=== PATIENT | male | born 1990 | race Caucasian/White ===

== ENCOUNTER → 2018-04-11 | Outpatient (CLI) | payer OTHER, BC ==
--- NOTE | 2018-04-11 12:38 | CT ---
EXAMINATION TYPE: CT cervical spine wo con DATE OF EXAM: 04/11/2018 COMPARISON: October 22, 2009 HISTORY: Neck pain since surgery 2009. CT DLP: 342.[address] of the cervical spine was performed with bone and soft tissue window settings submitted . Coronal and sagittal reconstruction is obtained. Interval ACDF changes extending from C3 through C5 with anterior fixation plate in place as well as i ntervertebral body stabilizer. There is decompressive laminectomy change noted posteriorly. Pedicular screws are in place. Streak artifact limits evaluation of these levels. C2-3: Within normal limits C5-6: Mild degenerative disc space narrowing. Ventral spondylosis. Mild posterior disc bulge. No reanna iation protrusion or central stenosis. Mild left foraminal encroachment. C6-7: Mild degenerative disc space narrowing. Mild posterior disc bulge. No evidence for herniation o r central stenosis. C7-T1: Within normal limits. There is reversal of the normal cervical lordosis can be seen in patients with muscle spasticity. IMPRESSION: 1. Postoperative changes of ACDF and cervical laminectomy at C3-C5 with reversal of the normal cervic al lordosis. 2. Degenerative disc space narrowing mild in degree with disc bulging as outlined above.
== END | disposition home or self-care (01) ==
LOC: RADCTMAIN 12:03
PROVIDERS: ATTEND Specialist
DX: M48.02 Spinal stenosis, cervical region (principal); M50.122 Cervical disc disorder at C5-C6 level with radiculopathy; Z98.1 Arthrodesis status
CPT/HCPCS: 72125

== ENCOUNTER 2018-04-16 16:17 | Inpatient (IN) | payer BC, MEDICAID, OTHER ==
--- NOTE | 2018-04-16 18:05 | ED ---
General Adult HPI - General Chief complaint: Psychiatric Symptoms Stated complaint: Mental health Time Seen by Provider: 04/16/18 16:33 Source: patient, RN notes reviewed, old records reviewed Mode of arrival: ambulatory Limitations: no limitations - History of Present Illness Initial comments: This is a 27-year-old male to the ER for evaluation presents today for evaluation regards to psychiatric illness. Patient having delusional delirium symptoms. Patient's been attempted to see psychiatrist but has not ever followed through, patient believes family is spying on him. Patient does have paranoid delusions. Patient is petition by his mom, brought in by the Police Department, no drugs or alcohol use - Related Data Home Medications Medication Instructions Recorded Confirmed No Known Home Medications 04/16/18 04/16/18 Allergies Allergy/AdvReac Type Severity Reaction Status Date / Time amoxicillin Allergy Unknown Verified 04/16/18 16:47 Childhood Review of Systems ROS Statement: Those systems with pertinent positive or pertinent negative responses have been documented in the HPI. ROS Other: All systems not noted in ROS Statement are negative. Past Medical History Past Medical History: No Reported History Additional Past Medical History / Comment(s): CHI, neck pains History of Any Multi-Drug Resistant Organisms: None Reported Additional Past Surgical History / Comment(s): neck surgery, craniotomy Past Psychological History: ADD/ADHD, Anxiety Smoking Status: Current every day smoker Past Alcohol Use History: Occasional Past Drug Use History: Marijuana General Exam Limitations: no limitations General appearance: alert, in no apparent distress Head exam: Present: atraumatic, normocephalic, normal inspection Eye exam: Present: normal appearance, PERRL, EOMI. Absent: scleral icterus, conjunctival injection, periorbital swelling ENT exam: Present: normal exam, mucous membranes moist Neck exam: Present: normal inspection. Absent: tenderness, meningismus, lymphadenopathy Respiratory exam: Present: normal lung sounds bilaterally. Absent: respiratory distress, wheezes, rales, rhonchi, stridor Cardiovascular Exam: Present: regular rate, normal rhythm, normal heart sounds. Absent: systolic murmur, diastolic murmur, rubs, gallop, clicks GI/Abdominal exam: Present: soft, normal bowel sounds. Absent: distended, tenderness, guarding, rebound, rigid Extremities exam: Present: normal inspection, full ROM, normal capillary refill. Absent: tenderness, pedal edema, joint swelling, calf tenderness Back exam: Present: normal inspection Neurological exam: Present: alert, oriented X3, CN II-XII intact Psychiatric exam: Present: normal affect, normal mood Skin exam: Present: warm, dry, intact, normal color. Absent: rash Course Vital Signs 04/16/18 16:36 Temperature 98.1 F Pulse Rate 91 Respiratory 18 Rate Blood Pressure 120/73 O2 Sat by Pulse 98 Oximetry - Reevaluation(s) Reevaluation #1: 04/16/18 18:05 Patient is medically clear for psychiatric evaluation Medical Decision Making - Medical Decision Making 27 male the ER for evaluation, patient presents for psychiatric illness. Patient's conditions inserted, patient was admitted admission for psychiatric evaluation Disposition Clinical Impression: Acute psychosis Disposition: TRANSFER TO PSYCH HOSP/UNIT Condition: Undetermined Is patient prescribed a controlled substance at d/c from ED?: No Referrals: Bennett Cast MD [Primary Care Provider] - 1-2 days
[2018-04-16 19:25] LABS: Amphetamine Screen,Urine Not Detected (NotDetected); Barbiturate Screen,Urine Not Detected (NotDetected); Benzodiazepines Screen,Urine Not Detected (NotDetected); Cocaine Screen,Urine Not Detected (NotDetected); Methadone Screen, Urine Not Detected (NotDetected); Opiate Screen,Urine Not Detected (NotDetected); Oxycodone Screen, Urine Not Detected (NotDetected); Phencyclidine Screen,Urine Not Detected (NotDetected); Tricyclic Antidepressant,Urine Not Detected (NotDetected); Urn Cannabinoid Scrn Detected (NotDetected)
[2018-04-16] MEDS ORDERED: MAG HYDROX/AL HYDROX/SIMETH 30 ML CUP PO PRN (19:49)
[2018-04-16] MEDS ORDERED: ZIPRASIDONE 20 MG VIAL IM PRN (19:49)
[2018-04-16] MEDS ORDERED: MAGNESIUM HYDROXIDE 2,400 MG/10 ML CUP PO PRN (19:49)
[2018-04-16] MEDS ORDERED: LORazepam 1 MG TAB PO PRN (19:49)
[2018-04-16] MEDS ORDERED: LORazepam 2 MG/ML INJ IM STA (19:53)
[2018-04-16] MEDS ORDERED: LORazepam 2 MG/ML INJ IM PRN (19:57)
[2018-04-16 20:02] LABS: Appearance,Urine Clear (Clear); Bilirubin,Urine Negative (Negative); Blood,Urine Negative (Negative); Color,Urine Yellow; Glucose,Urine (UA) Negative (Negative); Ketones,Urine Negative (Negative); Leukocyte Esterase,Urine Negative (Negative); Nitrite,Urine Negative (Negative); PH, Urine 6.5 (5.0-8.0); Protein,Urine Negative (Negative); Specific Gravity,Urine 1.015 (1.001-1.035); Urobilinogen,Urine <2.0 mg/dL (<2.0)
[2018-04-16] MEDS ORDERED: WATER FOR INJECTION, STERILE 10 ML IV ONE (20:18)
[2018-04-16] MEDS ORDERED: ZIPRASIDONE 20 MG VIAL IM ONE (20:18)
--- NOTE | 2018-04-16 21:00 | P.MHFACE ---
Face to Face Eval of Restraint - Evaluation Patient's Immediate Situation: Endangers self safety, Violent behavior Patient's Reaction to the Intervention: Appropriate, Calm, Relaxed, Cooperative Patient's Medical & Behavioral Condition: Awake, Alert, Follows directions Need to Continue or Terminate Restraint or Seclusion: Terminate
[2018-04-17] MEDS: NICOTINE 21MG/24HR PATCH TRANSDERM SCH ×2 (00:16→08:15)
[2018-04-17] MEDS: ACETAMINOPHEN TAB 325 MG TAB PO PRN ×2 (08:16→20:15)
[2018-04-17 09:55] LABS: ALT 213 U/L (21-72); AST 101 U/L (17-59); Alkaline Phosphatase 58 U/L (38-126); Anion Gap 8 mmol/L; Blood Urea Nitrogen 8 mg/dL (9-20); Calcium 9.4 mg/dL (8.4-10.2); Carbon Dioxide 30 mmol/L (22-30); Chloride 107 mmol/L (98-107); Cholesterol 157 mg/dL (<200); Glucose 60 mg/dL (74-99); HDL Cholesterol 54 mg/dL (40-60); LDL Cholesterol,Calculated 85 mg/dL (0-99); Potassium 4.2 mmol/L (3.5-5.1); Sodium 145 mmol/L (137-145); Total Bilirubin 0.6 mg/dL (0.2-1.3); Total Protein 6.7 g/dL (6.3-8.2); Triglycerides 89 mg/dL (<150)
--- NOTE | 2018-04-17 10:16 | P.HP ---
Psychiatric H&P - . H&P Date: 04/17/18 History & Physical: Allergies Allergy/AdvReac Type Severity Reaction Status Date / Time amoxicillin Allergy Unknown Verified 04/16/18 16:47 Childhood Vital Signs Temp 98.1 F 04/16/18 16:36 Pulse 82 04/16/18 22:10 Resp 18 04/16/18 16:36 BP 120/73 04/16/18 16:36 Pulse Ox 98 04/16/18 16:36 Intake & Output 04/16/18 04/17/18 04/17/18 18:59 06:59 18:59 Weight 58.967 kg 57.561 kg Laboratory Last Values Urine Color Yellow 04/16/18 18:19 Urine Appearance Clear (Clear) 04/16/18 18:19 Urine pH 6.5 (5.0-8.0) 04/16/18 18:19 Ur Specific Kinta 1.015 (1.001-1.035) 04/16/18 18:19 Urine Protein Negative (Negative) 04/16/18 18:19 Urine Glucose (UA) Negative (Negative) 04/16/18 18:19 Urine Ketones Negative (Negative) 04/16/18 18:19 Urine Blood Negative (Negative) 04/16/18 18:19 Urine Nitrite Negative (Negative) 04/16/18 18:19 Urine Bilirubin Negative (Negative) 04/16/18 18:19 Urine Urobilinogen <2.0 mg/dL (<2.0) 04/16/18 18:19 Ur Leukocyte Esterase Negative (Negative) 04/16/18 18:19 Urine Opiates Screen Not Detected (NotDetected) 04/16/18 18:19 Ur Oxycodone Screen Not Detected (NotDetected) 04/16/18 18:19 Urine Methadone Screen Not Detected (NotDetected) 04/16/18 18:19 Ur Propoxyphene Screen Not Detected (NotDetected) 04/16/18 18:19 Ur Barbiturates Screen Not Detected (NotDetected) 04/16/18 18:19 U Tricyclic Antidepress Not Detected (NotDetected) 04/16/18 18:19 Ur Phencyclidine Scrn Not Detected (NotDetected) 04/16/18 18:19 Ur Amphetamines Screen Not Detected (NotDetected) 04/16/18 18:19 U Methamphetamines Scrn Not Detected (NotDetected) 04/16/18 18:19 U Benzodiazepines Scrn Not Detected (NotDetected) 04/16/18 18:19 Urine Cocaine Screen Not Detected (NotDetected) 04/16/18 18:19 U Marijuana (THC) Screen Detected (NotDetected) H 04/16/18 18:19 27 male the ER for evaluation, patient presents for psychiatric illness. Patient's conditions inserted, patient was admitted admission for psychiatric evaluation 04/17/18 09:48 Assessment and Plan (1) Bipolar I disorder with rufino Current Visit: Yes Status: Acute Priority: High Code(s): F31.10 - BIPOLAR DISORD, CRNT EPISODE MANIC W/O PSYCH FEATURES, UNSP SNOMED Code(s): 32559660 (2) Acute psychosis Current Visit: Yes Status: Acute Priority: High Code(s): F23 - BRIEF PSYCHOTIC DISORDER SNOMED Code(s): 10240614 Plan: Chief Complaint: [27 male the ER for evaluation, patient presents for psychiatric illness. Patient's conditions inserted, patient was admitted admission for psychiatric evaluation] History of Present Illness: [This is a 27-year-old male to the ER for evaluation presents today for evaluation regards to psychiatric illness. Patient having delusional delirium symptoms. Patient's been attempted to see psychiatrist but has not ever followed through, patient believes family is spying on him. Patient does have paranoid delusions. Patient is petition by his mom, brought in by the Police Department, no drugs or alcohol use ] Past Psychiatric History: [Patient is tempted to go see his psychiatrist but has never follow through and got treatment] Drug/Alcohol Abuse History: [States he drinks once in a while but he more uses marijuana which was positive for] ROS Other: All systems not noted in ROS Statement are negative. Past Medical History Past Medical History: No Reported History Additional Past Medical History / Comment(s): CHI, neck pains History of Any Multi-Drug Resistant Organisms: None Reported Additional Past Surgical History / Comment(s): neck surgery, craniotomy Past Psychological History: ADD/ADHD, Anxiety Smoking Status: Current every day smoker Past Alcohol Use History: Occasional Past Drug Use History: Marijuana Musculoskeletal Examination - Abnormal/Involuntary Movements: [none] Strength: [greater than antigravity (greater than/equal to 3/5) in all extremities] Muscle Tone: [no impairment] Gait: [grossly normal] Station: [grossly normal] Mental Status Examination - General Appearance: [disheveled, bizarre, appears stated age] Speech/Language: [spontaneous, rapid, slurred, rambled, expressive,loud] Attitude/Behavior: [guarded, irritable, withdrawn, indifferent, other] Mood: [depressed, anxious, elated, irritable, angry, fearful Affect: [full range, lively, flat, incongruent, labile, blunted constricted, other] Orientation: [not time, person, place not situation] Thought Content: [delusions] Risk Factors: [not suicidal (ideations, plan), and/or but ideas Homicidal ( ideations, plan), other] Perception: [wnl] Thought Processes: [concrete, circumstantial, tangential] Concentration/Attention Span: [impaired] [Per observation and interview with the patient] Recent Memory: [ impaired] [0,out of 3 in 3 minutes] Remote Memory: [impaired] [past events, as related history] Intelligence: [below average] [based on history, based on vocabulary, syntax, grammar, and content] Judgement: [ poor] [per patient's behavior/history of present illness] Insight: poor] [understanding severity of illness/history of present illness] Admitting Diagnosis: [Acute psychosis and probable rufino severe in nature] Patient Strengths - Housing stability: [27-year-old male lists his mother] Able to vocalize needs: [I need to leave] Patient Limitations: [ pathological/unsupported environment, no interests, intellectual impairment, legal issues, lack of social supports] Initial Plan of Care: [And application for certification was filed, clinical circumflex was filled out. Involuntary hospitalization in the emergency room and today I filled out second certification for inpatient involuntary hospitalization at [facility] part here in [place]. He will be admitted to the psychiatric unit in the therapeutic cespedes milieu, evaluated for why he's got acute psychotic presentation and was the underlying mental health issues such as acute rufino and bipolar affective disorder. In deal of evaluated by medicine, nursing staff and social work staff group and recreational therapy.] Estimated Length of Stay: [7 days] Initial Discharge Plan: [[facility], referred to therapist] Prognosis: [fair] Justification for Inpatient Hospitalization - [delusions, agitation, anxiety resulting in significant loss of functioning.] [Dangerous to self, others, or property with need for controlled environment.] [Emotional or behavioral conditions and complications requiring 24 hour medical and nursing care.] [Need for special drug therapy, or other therapeutic program requiring continuous hospitalization.] [Failure of social or occupational functioning.] [Inability to meet basic life and health needs.] [Legally mandated admission.] Time with Patient: Greater than 30
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
[2018-04-17 20:15] LABS: Hemoglobin A1C 5.4 % (4.0-6.0)
[2018-04-18] MEDS: NICOTINE 21MG/24HR PATCH TRANSDERM SCH (08:33)
--- NOTE | 2018-04-18 11:19 | P.PN ---
Subjective Progress Note Date: 04/18/18 Principal diagnosis: Bipolar affective disorder [facility] Complaint: [27 male the ER for evaluation, patient presents for psychiatric illness. Patient's conditions inserted, patient was admitted admission for psychiatric evaluation] History of Present Illness: [This is a 27-year-old male to the ER for evaluation presents today for evaluation regards to psychiatric illness. Patient having delusional delirium symptoms. Patient's been attempted to see psychiatrist but has not ever followed through, patient believes family is spying on him. Patient does have paranoid delusions. Patient is petition by his mom, brought in by the Police Department, no drugs or alcohol use Mental Status Examination - General Appearance: [disheveled, bizarre, appears stated age] Speech/Language: [spontaneous, rapid, slurred, rambled, expressive,loud] Attitude/Behavior: [guarded, irritable, withdrawn, indifferent, other] Mood: [depressed, anxious, elated, irritable, angry, fearful Affect: [full range, lively, flat, incongruent, labile, blunted constricted, other] Orientation: [not time, person, place not situation] Thought Content: [delusions] Risk Factors: [not suicidal (ideations, plan), and/or but ideas Homicidal ( ideations, plan), other] Perception: [wnl] Thought Processes: [concrete, circumstantial, tangential] Concentration/Attention Span: [impaired] [Per observation and interview with the patient] Recent Memory: [ impaired] [0,out of 3 in 3 minutes] Remote Memory: [impaired] [past events, as related history] Intelligence: [below average] [based on history, based on vocabulary, syntax, grammar, and content] Judgement: [ poor] [per patient's behavior/history of present illness] Insight: poor] [understanding severity of illness/history of present illness] Admitting Diagnosis: [Acute psychosis and probable rufino severe in nature] Initial Discharge Plan: [[facility], referred to therapist]Initial Plan of Care: [And application for certification was filed, clinical circumflex was filled out. Involuntary hospitalization in the emergency room and today I filled out second certification for inpatient involuntary hospitalization at [facility] part here in [place]. He will be admitted to the psychiatric unit in the therapeutic cespedes milieu, evaluated for why he's got acute psychotic presentation and was the underlying mental health issues such as acute rufino and bipolar affective disorder. In deal of evaluated by medicine, nursing staff and social work staff group and recreational therapy.] Objective - Vital Signs Vital signs: Vital Signs Temp 98.1 F 04/16/18 16:36 Pulse 82 04/16/18 22:10 Resp 18 04/16/18 16:36 BP 120/73 04/16/18 16:36 Pulse Ox 98 04/16/18 16:36 - Labs CBC & Chem 7: 04/17/18 09:03 Assessment and Plan (1) Bipolar I disorder with rufino Current Visit: Yes Status: Acute Priority: High Code(s): F31.10 - BIPOLAR DISORD, CRNT EPISODE MANIC W/O PSYCH FEATURES, UNSP SNOMED Code(s): 55488947 (2) Acute psychosis Current Visit: Yes Status: Acute Priority: High Code(s): F23 - BRIEF PSYCHOTIC DISORDER SNOMED Code(s): 85983415
[2018-04-19] MEDS: NICOTINE 21MG/24HR PATCH TRANSDERM SCH ×2 (08:05→17:17)
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
[2018-04-20] MEDS: NICOTINE 21MG/24HR PATCH TRANSDERM SCH (12:06)
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
[2018-04-21] MEDS: NICOTINE 21MG/24HR PATCH TRANSDERM SCH (09:44)
--- NOTE | 2018-04-21 18:25 | P.PN ---
Progress Note - Text Progress Note Date: 04/21/18 IDENTIFICATION DATA : This is a 27-year-old male petitioned by his mother due to his paranoid and delusional behaviors INTERVAL HISTORY: Patient denies most of the symptoms. He states his main problem is getting along well with his mother. He reports good sleep and appetite. He denies feeling sad or hopeless. He reports going to all his group and is able to stay concentrated. No behavioral problems reported. He gets along well with his peers and staff. No delusional behaviors noted. MENTAL STATUS EXAMINATION: The patient is alert and oriented 4 and in no apparent distress. he appears in fair grooming and hygiene. Dressed casually. He is pleasant and cooperative. Mood is "good" and affect is constricted. Denies auditory and visual hallucinations. thought processes is linear and goal directed. thought content is negative for suicidal or homicidal ideation. insight and judgment are improving ASSESSMENT AND PLAN: No changes in treatment Social work to coordinate discharge planning as he needs placement/assisted or assistance with section 8 housing.
[2018-04-22] MEDS: NICOTINE 21MG/24HR PATCH TRANSDERM SCH (07:59)
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
[2018-04-23] MEDS: NICOTINE 21MG/24HR PATCH TRANSDERM SCH (09:20)
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
[2018-04-23] MEDS: lamoTRIgine 25 MG TAB PO SCH (20:10)
[2018-04-23] MEDS ORDERED: risperiDONE 0.5 MG TAB PO SCH (21:00)
[2018-04-24] MEDS: NICOTINE 21MG/24HR PATCH TRANSDERM SCH (08:01)
[2018-04-24] MEDS: lamoTRIgine 25 MG TAB PO SCH (08:01)
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
[2018-04-24] MEDS ORDERED: lamoTRIgine 25 MG TAB PO SCH (20:00)
[2018-04-25] MEDS: NICOTINE 21MG/24HR PATCH TRANSDERM SCH (08:31)
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
[2018-04-25] MEDS ORDERED: lamoTRIgine 100 MG TAB PO SCH (20:00)
[2018-04-26] MEDS: NICOTINE 21MG/24HR PATCH TRANSDERM SCH (07:55)
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
[2018-04-26] MEDS: lamoTRIgine 25 MG TAB PO SCH (21:40)
[2018-04-26] MEDS: lamoTRIgine 100 MG TAB PO SCH (21:41)
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
[2018-04-27] MEDS: lamoTRIgine 25 MG TAB PO SCH (08:49)
[2018-04-27] MEDS: lamoTRIgine 100 MG TAB PO SCH ×2 (08:49→19:57)
[2018-04-27] MEDS: NICOTINE 21MG/24HR PATCH TRANSDERM SCH (08:49)
[2018-04-28] MEDS: NICOTINE 21MG/24HR PATCH TRANSDERM SCH (07:55)
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
[2018-04-28] MEDS: lamoTRIgine 100 MG TAB PO SCH (20:05)
[2018-04-29 00:26] VITALS: BP 102/64; PULSE 69; RESP 14; TEMP 97.9
[2018-04-29] MEDS: NICOTINE 21MG/24HR PATCH TRANSDERM SCH (08:14)
--- NOTE | 2018-04-29 09:45 | P.DS ---
Providers Date of admission: 04/16/18 19:44 Expected date of discharge: 04/29/18 Attending physician: Nahum Thurston DO Consults: 04/16/18 19:49 Consult Physician Routine Consulting Provider: Bennett Cast Consult Reason/Comments: H&P for mental health admission Do you want consulting provider notified?: Yes Primary care physician: Bennett Cast - Discharge Diagnosis(es) (1) Bipolar I disorder with rufino History of Present Illness: [This is a 27-year-old male to the ER for evaluation presents today for evaluation regards to psychiatric illness. Patient having delusional delirium symptoms. Patient's been attempted to see psychiatrist but has not ever followed through, patient believes family is spying on him. Patient does have paranoid delusions. Patient is petition by his mom, brought in by the Police Department, no drugs or alcohol use ] Past Psychiatric History: [Patient is tempted to go see his psychiatrist but has never follow through and got treatment] Drug/Alcohol Abuse History: [States he drinks once in a while but he more uses marijuana which was positive for] ROS Other: All systems not noted in ROS Statement are negative. Past Medical History Past Medical History: No Reported History Additional Past Medical History / Comment(s): CHI, neck pains History of Any Multi-Drug Resistant Organisms: None Reported Additional Past Surgical History / Comment(s): neck surgery, craniotomy Past Psychological History: ADD/ADHD, Anxiety Smoking Status: Current every day smoker Past Alcohol Use History: Occasional Past Drug Use History: MarijuanaAdmitting Diagnosis: [Acute psychosis (now stable) and probable rufino severe in nature] Current Visit: Yes Status: Acute Priority: Low (2) Acute psychosis Current Visit: Yes Status: Acute Priority: Low Hospital Course: Mental Status Examination - General Appearance: [well groomed,casual, appears stated age] Speech/Language: [spontaneous, expressive,soft] Attitude/Behavior: [cooperative] Mood: [depressed (0/10) anxious(0/10) Affect: [ wnl] Orientation: [time, person, place situation] Thought Content: [wnl, ] Risk Factors: [Does not admit suicidal (ideations, plan), and/or Homicidal ( ideations, plan), other] Perception: [wnl] Thought Processes: [ wnl Concentration/Attention Span: [wnl[Per observation and interview with the patient] Recent Memory: [wnl, 3 out of 3 in 3 minutes] Remote Memory: [wnl] [past events, as related history] Intelligence: [average] [based on history, based on vocabulary, syntax, grammar , and content] Judgement: [good] [per patient's behavior/history of present illness] Insight: [good] [understanding severity of illness/history of present illness] Stable and able to make good decisions. Patient Condition at Discharge: Stable Plan - Discharge Summary Discharge Rx Participant: Yes New Discharge Prescriptions: New fluPHENAZine [Prolixin] 1 mg PO DAILY #60 tab lamoTRIgine [LaMICtal] 200 mg PO HS #30 tab Discharge Medication List fluPHENAZine [Prolixin] 1 mg PO DAILY #60 tab 04/29/18 [Rx] lamoTRIgine [LaMICtal] 200 mg PO HS #30 tab 04/29/18 [Rx] Follow up Appointment(s)/Referral(s): Bennett Cast MD [Primary Care Provider] - 1-2 days Discharge Disposition: HOME SELF-CARE
[2018-04-29 12:03] VITALS: BMI 20.7
== END 2018-04-29 12:12 | disposition home or self-care (01) | DRG 885 ==
LOC: EC 16:17 → 3MHU 19:44
PROVIDERS: ADMIT Psychiatry & Neurology Psychiatry; ATTEND Psychiatry & Neurology Psychiatry
DX: F31.2 Bipolar disorder, current episode manic severe with psychotic features (principal); F17.200 Nicotine dependence, unspecified, uncomplicated; F12.90 Cannabis use, unspecified, uncomplicated; F42.9 Obsessive-compulsive disorder, unspecified; F43.22 Adjustment disorder with anxiety; F90.9 Attention-deficit hyperactivity disorder, unspecified type; R45.850 Homicidal ideations; Z81.1 Family history of alcohol abuse and dependence; Z91.14 Patient's other noncompliance with medication regimen; Z78.1 Physical restraint status; Z88.0 Allergy status to penicillin; Z87.820 Personal history of traumatic brain injury
CPT/HCPCS: 80053; 80061; 80306; 81003; 83036; 84443; 99285

== ENCOUNTER 2018-06-24 16:34 | Emergency (ER) | payer OTHER, BC ==
[2018-06-24 16:44] VITALS: BP 100/71; PULSE 114; RESP 18; TEMP 97.8
--- NOTE | 2018-06-24 17:11 | ED ---
Psych HPI - General Source: patient, RN notes reviewed, old records reviewed Mode of arrival: ambulatory - History of Present Illness MD Complaint: suicidal ideation, feels depressed -: unknown Associated Psychiatric Symptoms: depression, suicidal ideation History of same: No Quality: constant Improves With: none Worsens With: none Context: not taking psychiatric medications Associated Symptoms: denies other symptoms, headache If Self Harm: other (depression just cleared from intermediate) <Puma Bhagat - Last Filed: 06/24/18 17:50> <Katlyn Callejas - Last Filed: 06/25/18 00:12> - General Chief Complaint: Psychiatric Symptoms Stated Complaint: Mental Health Time Seen by Provider: 06/24/18 16:46 - History of Present Illness Initial Comments: This is a 27-year-old male the ER for evaluation presents today for evaluation regards to psychiatric illness, patient states he needs to be admitted for help with mental health. Patient denies drug or alcohol abuse that patient was just discharged from intermediate where his car intermediate and was told of psychiatric evaluation and relief (Puma Bhagat) - Related Data Home Medications Medication Instructions Recorded Confirmed fluPHENAZine [Prolixin 5MG] 2.5 mg PO DAILY 06/24/18 06/24/18 Previous Rx's Medication Instructions Recorded lamoTRIgine [LaMICtal] 200 mg PO HS #30 tab 04/29/18 Allergies Allergy/AdvReac Type Severity Reaction Status Date / Time amoxicillin Allergy Unknown Verified 06/24/18 16:56 Childhood Review of Systems ROS Other: All systems not noted in ROS Statement are negative. <Puma Bhagat - Last Filed: 06/24/18 17:50> ROS Other: All systems not noted in ROS Statement are negative. <Katlyn Callejas - Last Filed: 06/25/18 00:12> ROS Statement: Those systems with pertinent positive or pertinent negative responses have been documented in the HPI. Past Medical History Past Medical History: No Reported History Additional Past Medical History / Comment(s): CHI, neck pains History of Any Multi-Drug Resistant Organisms: None Reported Additional Past Surgical History / Comment(s): neck surgery, craniotomy Past Psychological History: ADD/ADHD, Anxiety Smoking Status: Current every day smoker <Puma Bhagat - Last Filed: 06/24/18 17:50> General Exam Limitations: no limitations General appearance: alert, in no apparent distress Head exam: Present: atraumatic, normocephalic, normal inspection Eye exam: Present: normal appearance, PERRL, EOMI. Absent: scleral icterus, conjunctival injection, periorbital swelling ENT exam: Present: normal exam, mucous membranes moist Neck exam: Present: normal inspection. Absent: tenderness, meningismus, lymphadenopathy Respiratory exam: Present: normal lung sounds bilaterally. Absent: respiratory distress, wheezes, rales, rhonchi, stridor Cardiovascular Exam: Present: regular rate, normal rhythm, normal heart sounds. Absent: systolic murmur, diastolic murmur, rubs, gallop, clicks GI/Abdominal exam: Present: soft, normal bowel sounds. Absent: distended, tenderness, guarding, rebound, rigid Extremities exam: Present: normal inspection, full ROM, normal capillary refill. Absent: tenderness, pedal edema, joint swelling, calf tenderness Back exam: Present: normal inspection Neurological exam: Present: alert, oriented X3, CN II-XII intact Psychiatric exam: Present: normal affect, normal mood Skin exam: Present: warm, dry, intact, normal color. Absent: rash <Puma Bhagat - Last Filed: 06/24/18 17:50> Course <Puma Bhagat - Last Filed: 06/24/18 17:50> <Katlyn Callejas - Last Filed: 06/25/18 00:12> Vital Signs 06/24/18 16:35 Temperature 97.8 F Pulse Rate 114 H Respiratory 18 Rate Blood Pressure 100/71 O2 Sat by Pulse 96 Oximetry - Reevaluation(s) Reevaluation #1: 06/24/18 17:50 Medical record is reviewed (Puma Bhagat) Medical Decision Making <Puma Bhagat - Last Filed: 06/24/18 17:50> <Katlyn Callejas - Last Filed: 06/25/18 00:12> - Medical Decision Making Patient care was signed out to me by Dr. Frank Toney at 9 PM. At that time patient was awaiting evaluation by the emergency psychiatric service nurse. Patient was evaluated, it was determined the patient was safe for discharge home and outpatient follow-up. Patient was agreeable to this plan. Patient discharged home in stable condition. (Katlyn Callejas) Disposition Is patient prescribed a controlled substance at d/c from ED?: No <Puma Bhagat - Last Filed: 06/24/18 17:50> Is patient prescribed a controlled substance at d/c from ED?: No <Katlyn Callejas - Last Filed: 06/25/18 00:12> Clinical Impression: Acute psychosis, Bipolar I disorder with rufino, Depression Disposition: HOME SELF-CARE Condition: Fair Instructions: Depression (ED) Referrals: Bennett Cast MD [Primary Care Provider] - 1-2 days
== END 2018-06-25 00:29 | disposition home or self-care (01) ==
LOC: EC 16:34
DX: F30.9 Manic episode, unspecified (principal); F23 Brief psychotic disorder; F17.200 Nicotine dependence, unspecified, uncomplicated; Z79.899 Other long term (current) drug therapy; Z88.0 Allergy status to penicillin
CPT/HCPCS: 82075; 99285

== ENCOUNTER 2018-08-07 22:31 | Emergency (ER) | payer BC, OTHER ==
[2018-08-07] MEDS ORDERED: SULFAMETH-TMP DS STARTER PACK 2 TAB BTL PO STA (23:12)
[2018-08-07] MEDS ORDERED: CEPHALEXIN 500MG STARTER PACK 4 CAP BTL PO STA (23:12)
--- NOTE | 2018-08-07 23:25 | ED ---
Skin/Abscess/FB HPI - General Chief complaint: Skin/Abscess/Foreign Body Stated complaint: Abscess Time Seen by Provider: 08/07/18 22:56 Source: patient Mode of arrival: ambulatory Limitations: no limitations - History of Present Illness Initial comments: 27-year-old male patient who does admit to being an IV drug user presents to the emergency department today for evaluation of abscess to his bilateral arms. Patient states that the abscesses have developed at known injection sites. He denies any drainage from the areas. Patient states the areas are somewhat painful. Denies any fevers or chills. Denies any nausea or vomiting. Denies any history of abscess or MRSA. Patient denies any recent shortness breath, chest pain, abdominal pain, diarrhea, constipation, back pain, numbness, tingling, dizziness, weakness, hematuria, dysuria, urinary urgency, urinary frequency, headache, visual changes, or any other complaints. - Related Data Previous Rx's Medication Instructions Recorded Cephalexin [Keflex] 500 mg PO Q6H #40 cap 08/07/18 Sulfamethoxazole/Trimethoprim 1 each PO BID #20 tablet 08/07/18 [Bactrim DS 800-160 mg] Allergies Allergy/AdvReac Type Severity Reaction Status Date / Time amoxicillin Allergy Unknown Verified 08/07/18 22:54 Childhood Review of Systems ROS Statement: Those systems with pertinent positive or pertinent negative responses have been documented in the HPI. ROS Other: All systems not noted in ROS Statement are negative. Past Medical History Past Medical History: No Reported History Additional Past Medical History / Comment(s): CHI, neck pains History of Any Multi-Drug Resistant Organisms: None Reported Additional Past Surgical History / Comment(s): neck surgery, craniotomy Past Psychological History: ADD/ADHD, Anxiety Smoking Status: Current every day smoker Past Alcohol Use History: Occasional Past Drug Use History: Cocaine, Heroin, Marijuana General Exam Limitations: no limitations General appearance: alert, in no apparent distress, other (This is a well- developed, well-nourished adult male patient in no acute distress. Vital signs upon presentation are pulse 69, respirations 20, blood pressure 107/72, pulse ox 98% on room air.) Eye exam: Present: normal appearance, PERRL, EOMI. Absent: scleral icterus, conjunctival injection, periorbital swelling ENT exam: Present: normal exam, normal oropharynx, mucous membranes moist Respiratory exam: Present: normal lung sounds bilaterally. Absent: respiratory distress, wheezes, rales, rhonchi, stridor Cardiovascular Exam: Present: regular rate, normal rhythm, normal heart sounds. Absent: systolic murmur, diastolic murmur, rubs, gallop, clicks GI/Abdominal exam: Present: soft, normal bowel sounds. Absent: distended, tenderness, guarding, rebound, rigid Extremities exam: Present: full ROM, normal capillary refill, other (Patient has small 1 cm x 1 cm abscess noted to the left antecubital fossa, this is indurated with no fluctuance. Right upper arm exhibit small 1 cm a 1 cm abscess with minimal surrounding erythema. This is indurated with no fluctuance. Remainder of skin is pink, warm, and dry. Cap refills less than 3 seconds. Radial pulses are 2+ and equal bilaterally.). Absent: normal inspection, tenderness, pedal edema, joint swelling, calf tenderness Neurological exam: Present: alert, oriented X3, CN II-XII intact Psychiatric exam: Present: normal affect, normal mood Skin exam: Present: warm, dry, intact, normal color. Absent: rash Course Vital Signs 08/07/18 08/07/18 22:33 23:49 Pulse Rate 69 63 Respiratory 20 16 Rate Blood Pressure 107/72 91/60 O2 Sat by Pulse 98 95 Oximetry Medical Decision Making - Medical Decision Making 27-year-old male patient presented to the emergency department today for evaluation of abscess to his bilateral arms. Physical examination did reveal a 1 x 1 cm abscess to the left antecubital fossa as well as the right upper arm. Both indurated with no fluctuance, no evidence of drainable abscess. Patient is in minimal surrounding cellulitis. We'll treat with Bactrim and Keflex. He is instructed to complete antibiotics in full. Is instructed to take Tylenol Motrin for pain control. They're advised against using intravenous drugs. Patient states he does have access to clean needles however. He is instructed to follow-up with the primary care physician for recheck in 1-2 days. He is instructed to return immediately for any new, worsening, or concerning symptoms. He verbalizes understanding and agrees with this plan. Disposition Clinical Impression: Cutaneous abscess Disposition: HOME SELF-CARE Condition: Good Instructions: Abscess (ED) Additional Instructions: Apply warm compresses over the areas of abscess. Complete antibiotic prescriptions in full. Follow up with your primary care physician for recheck in 1-2 days. Return to the emergency department if areas become worse, or develop any new, symptoms. Prescriptions: Cephalexin [Keflex] 500 mg PO Q6H #40 cap Sulfamethoxazole/Trimethoprim [Bactrim DS 800-160 mg] 1 each PO BID #20 tablet Is patient prescribed a controlled substance at d/c from ED?: No Referrals: Bennett Cast MD [Primary Care Provider] - 1-2 days Time of Disposition: 23:25
[2018-08-07 23:50] VITALS: BP 91/60; PULSE 63; RESP 16
== END 2018-08-07 23:51 | disposition home or self-care (01) ==
LOC: EC 22:31
DX: L02.414 Cutaneous abscess of left upper limb (principal); L02.413 Cutaneous abscess of right upper limb; F17.200 Nicotine dependence, unspecified, uncomplicated; Z88.0 Allergy status to penicillin
CPT/HCPCS: 99282